=== PATIENT | female | born 1945 | race Caucasian/White ===

== ENCOUNTER 2016-08-21 19:15 | Emergency (ER) | payer OTHER ==
[~2016-08-21] VITALS: Ht 157.5 cm; Wt 70.6 kg
[~2016-08-21 19:15] MED LIST: LACT1CAP6 PO; LEVO112T4 PO; PRLSR20 PO; PRM625 PO; PROM25IN13 PO
[2016-08-21 19:28] VITALS: TEMP 37.2; O2SAT 97; Ht 157.5 cm; Wt 70.6 kg
[2016-08-21] MEDS ORDERED: MEPERIDINE HCL 25 MG/ML CARP IV STA (20:09)
[2016-08-21] MEDS ORDERED: PROMETHAZINE HCL INJ 12.5 MG in SODIUM CHLORIDE 0.9% 50ML 50 ML IV STA (20:09)
[2016-08-21] MEDS ORDERED: SODIUM CHLORIDE 0.9% 500ML 500 ML IV STA (20:13)
[2016-08-21 20:48] LABS: BASO % 0.2 %; BASO ABS # 0.02 K/uL (0-0.2); COMPLETE YES; EOS % 1.2 %; HEMATOCRIT 43.2 % (37-47); IG% 0.1 %; LYMPH % 23.1 %; LYMPH ABS # 1.97 K/uL (1.2-3.4); MEAN CELL VOLUME 85.9 fL (80-100); MEAN PLATELET VOLUME 10.2 fL (7.4-10.4); MONO % 10.3 %; NEUT % 65.1 %; PLATELET COUNT 203 K/uL (130-400); RED BLOOD COUNT 5.03 M/uL (4.2-5.4); WHITE BLOOD COUNT 8.53 K/uL (4.8-10.8)
[2016-08-21 21:09] LABS: BUN/CREATININE RATIO 14.8 (10-20); CALCIUM 8.8 mg/dl (8.5-10.1); CREATININE 0.97 mg/dl (0.60-1.20); POTASSIUM 3.6 mmol/L (3.5-5.1)
[2016-08-21 22:28] VITALS: BP 133/91; PULSE 86; O2SAT 96
--- NOTE | 2016-08-22 01:43 | EMERGENCY ROOM VISIT NOTE ---
History Report prepared by Fab: Dorinda Laura Under the Supervision of: Dr. Jerson Roca M.D. First contact with patient: 19:58 Chief Complaint: HEADACHE Stated Complaint: NAUSEA, MIGRAINE History of Present Illness The patient is a 71 year old female who presents to the Emergency Room with complaints of a worsening headache for the past 2 days. She has a history of migraine headaches and states that this feels like her typical migraine headache. Her pain is located diffusely throughout her head. She rates her pain as an 8/10 in severity. Light exacerbates her pain. She states that she has not had a migraine headache for almost a year. The patient had nausea and vomiting last night due to her pain. Since arriving in the ED today she notes that her left ear is clogged. The patient denies fever, weakness, abdominal pain, and any recent injury or falls. She was brought to the ED by ambulance. Source of History: patient Onset: 2 days ago Position: head Symptom Intensity: 8/10 Timing: worsening Modifying Factors (Worsening): other (light) Associated Symptoms: + nausea, + vomiting, No abdominal pain, No fevers, No weakness Review of Systems See HPI for pertinent positives & negatives. A total of 10 systems reviewed and were otherwise negative. Past Medical & Surgical Medical Problems: (1) Benign hypertension (2) Benign paroxysmal positional vertigo (3) Cystocele (4) Diverticular disease of colon (5) Dyslipidemia (6) Fatty liver (7) Gastroesophageal reflux disease (8) Glaucoma (9) Hypothyroidism (10) Migraine (11) MYALGIA AND MYOSITIS NOS (12) s/p appendectomy (13) s/p cholecystectomy (14) s/p colonoscopy (15) s/p cystocele repair (16) s/p hysterectomy (17) s/p left oophorectomy (18) s/p partial colectomy for diverticulosis (19) Trigeminal neuralgia Family History Cancer Diabetes mellitus Gallbladder disease Heart disease Hypertension Social History Smoking Status: Never Smoker Alcohol Use: none Marital Status: Housing Status: lives with significant other Occupation Status: unemployed, retired Current/Historical Medications Scheduled Estrogens, Conjugated (Premarin), 0.625 MG PO DAILY Lactobacillus (Probiotic), 1 CAP PO DAILY Levothyroxine Sodium (Levothyroxine Sodium), 112 MCG PO DAILY Omeprazole (Prilosec), 20 MG PO DAILY Promethazine Hcl (Phenergan), 25 MG PO Q6 Allergies Coded Allergies: Cefaclor (Verified Allergy, Severe, ANAPHYLACTIC- ALSO CEFTIN,KEFLEX, 08/21) Sulfa Drugs (Verified Allergy, Severe, BACTRIM-HIVES,SOB, 08/21/16) Bromfenac (Verified Allergy, Intermediate, SWELLING; THROAT PAIN, 08/21/16) Paroxetine (Verified Allergy, Intermediate, HIVES, 08/21/16) Carbamazepine (Verified Allergy, Mild, ITCHING, 08/21/16) Acetaminophen (Verified Allergy, Unknown, 08/21/16) Benzalkonium Chloride (Verified Allergy, Unknown, SWELLING, THROAT PAIN, ) Bupropion (Verified Allergy, Unknown, 08/21/16) Cephalosporins (Verified Allergy, Unknown, Unknown, 08/21/16) Ciprofloxacin (Verified Allergy, Unknown, Hives, 08/21/16) Dicyclomine (Verified Allergy, Unknown, 08/21/16) Levofloxacin (Verified Allergy, Unknown, SWELLING, THROAT PAIN, 08/21/16) Lisinopril (Verified Allergy, Unknown, Unknown, 08/21/16) Metronidazole (Verified Allergy, Unknown, 08/21/16) Morphine and Related (Verified Allergy, Unknown, Unknown, 08/21/16) Nitrofurantoin (Verified Allergy, Unknown, Unknown, 08/21/16) Ondansetron (Verified Allergy, Unknown, Unknown, 08/21/16) Penicillins (Verified Allergy, Unknown, ALSO AMPICILLIN,AMOXICILLIN, ) Prednisone (Verified Allergy, Unknown, 08/21/16) Prochlorperazine (Verified Allergy, Unknown, 08/21/16) Propoxyphene (Verified Allergy, Unknown, 08/21/16) Quinolones (Verified Allergy, Unknown, HAS RECEIVED LEVAQUIN IV W/O RXN, ) Sulfa Antibiotics (Verified Allergy, Unknown, HIVES, 08/21/16) Sulfamethoxazole w/Trimethoprim (Verified Allergy, Unknown, HIVES, 08/21/16 ) Tetracycline (Verified Allergy, Unknown, 08/21/16) Ethanol (Verified Adverse Reaction, Intermediate, NAUSEA/VOMITING, 08/21/16 ) Fentanyl (Verified Adverse Reaction, Intermediate, NAUSEA/VOMITING, ) Isosorbide (Verified Adverse Reaction, Mild, HEADACHE, VOMITING, 08/21/16) Atenolol (Verified Adverse Reaction, Unknown, INTOLERANT, 08/21/16) Chlorzoxazone (Verified Adverse Reaction, Unknown, INTOLERANT, 08/21/16) Codeine (Verified Adverse Reaction, Unknown, HEADACHES, 08/21/16) Desipramine (Verified Adverse Reaction, Unknown, INTOLERANT, 08/21/16) Erythromycin (Verified Adverse Reaction, Unknown, INTOLERANT, 08/21/16) Fluoxetine (Verified Adverse Reaction, Unknown, INTOLERANT, 08/21/16) Gabapentin (Verified Adverse Reaction, Unknown, INTOLERANT, 08/21/16) Lincomycin (Verified Adverse Reaction, Unknown, INTOLERANT, 08/21/16) Lorazepam (Verified Adverse Reaction, Unknown, INTOLERANT, 08/21/16) Oxycodone (Verified Adverse Reaction, Unknown, TYLOX-HEADACHES, 08/21/16) Physical Exam Vital Signs Date Time Temp Pulse Resp B/P Pulse Ox O2 Delivery O2 Flow Rate FiO2 08/21/16 22:28 86 18 133/91 96 Room Air 08/21/16 20:30 77 18 145/96 98 Room Air 08/21/16 19:28 37.2 86 18 153/87 97 Room Air 08/21/16 19:28 97 Room Air Physical Exam Constitutional: Vital signs reviewed. Eyes: Pupils are equal round reactive to light. Conjunctiva are noninjected. ENT: Pharynx is clear without erythema or exudate. Mucous membranes are moist. Neck supple without meningeal signs. Respiratory: Clear to auscultation bilaterally. Breath sounds are equal bilaterally. Cardiovascular: Regular rate and rhythm. No rubs or gallops. GI: Soft, nondistended and nontender. Bowel sounds are present. Musculoskeletal: No peripheral edema. Integumentary: No cyanosis. Neurological: The patient is awake and alert. Cranial nerves II-XII are intact. Motor is 5 out of 5 all extremities. Sensation is intact to light touch all extremities. Normal speech. No pronator drift. Psychiatric: Normal affect. Medical Decision & Procedures Laboratory Results 08/21/16 20:31 Red Blood Count 5.03, Mean Corpuscular Volume 85.9, Mean Corpuscular Hemoglobin 30.0, Mean Corpuscular Hemoglobin Concent 35.0, Mean Platelet Volume 10.2, Neutrophils (%) (Auto) 65.1, Lymphocytes (%) (Auto) 23.1, Monocytes (%) (Auto) 10.3, Eosinophils (%) (Auto) 1.2, Basophils (%) (Auto) 0.2, Neutrophils # (Auto ) 5.55, Lymphocytes # (Auto) 1.97, Monocytes # (Auto) 0.88, Eosinophils # (Auto ) 0.10, Basophils # (Auto) 0.02 08/21/16 20:31 Test 08/21/16 20:30 08/21/16 20:31 Influenza Type A Antigen Neg for Influ A (NEG) Influenza Type B Antigen Neg for Influ B (NEG) White Blood Count 8.53 K/uL (4.8-10.8) Red Blood Count 5.03 M/uL (4.2-5.4) Hemoglobin 15.1 g/dL (12.0-16.0) Hematocrit 43.2 % (37-47) Mean Corpuscular Volume 85.9 fL (80-100) Mean Corpuscular Hemoglobin 30.0 pg (25-34) Mean Corpuscular Hemoglobin Concent 35.0 g/dl (32-36) Platelet Count 203 K/uL (130-400) Mean Platelet Volume 10.2 fL (7.4-10.4) Neutrophils (%) (Auto) 65.1 % Lymphocytes (%) (Auto) 23.1 % Monocytes (%) (Auto) 10.3 % Eosinophils (%) (Auto) 1.2 % Basophils (%) (Auto) 0.2 % Neutrophils # (Auto) 5.55 K/uL (1.4-6.5) Lymphocytes # (Auto) 1.97 K/uL (1.2-3.4) Monocytes # (Auto) 0.88 K/uL (0.11-0.59) Eosinophils # (Auto) 0.10 K/uL (0-0.5) Basophils # (Auto) 0.02 K/uL (0-0.2) RDW Standard Deviation 43.6 fL (36.4-46.3) RDW Coefficient of Variation 13.9 % (11.5-14.5) Immature Granulocyte % (Auto) 0.1 % Immature Granulocyte # (Auto) 0.01 K/uL (0.00-0.02) Anion Gap 11.0 mmol/L (3-11) Est Creatinine Clear Calc Drug Dose 47.5 ml/min Estimated GFR () 67.2 Estimated GFR (Non- 57.9 BUN/Creatinine Ratio 14.8 (10-20) Calcium Level 8.8 mg/dl (8.5-10.1) Laboratory results as reviewed by me. Medications Administered Medications (Trade) Dose Ordered Sig/Kaylah Route Start Time Stop Time Status Last Admin Dose Admin Promethazine HCl/ Sodium Chloride (Phenergan Inj/ Nss 50ml) 50.5 ml @ 204 mls/hr NOW STAT IV 08/21/16 20:09 08/21/16 20:24 DC 08/21/16 20:09 204 MLS/HR Meperidine HCl 25 mg 25 mg ONE STAT IV 08/21/16 20:09 08/21/16 20:13 DC 08/21/16 21:40 25 MG Sodium Chloride (Nss 500ml) 500 ml @ 999 mls/hr Q31M STAT IV 08/21/16 20:13 08/21/16 20:43 DC 08/21/16 20:13 999 MLS/HR ED Course 1957: The patient was evaluated in room C5. A complete history and physical exam was performed. 2008: Demerol Inj 25 mg IV, Promethazine HCl 12.5 mg/ Sodium Chloride 50.5 ml @ 204 mls/hr IV. 2013: NSS 500 ml @ 999 mls/hr. 2220: I reassessed the patient at this time. She is feeling better and resting comfortably. I discussed the results and treatment plan with the patient. I answered all pertaining questions that she had. She expressed understanding and verbalized agreement. The patient will be discharged home. Medical Decision This is a 71-year-old female presents with a headache. Differential diagnosis includes migraine headache, tension headache, intracranial mass, intracranial hemorrhage, meningitis. I did perform a limited focused review of portions of the patient's old chart on the electronic medical record. The patient was here in October and June of last year with migraine headaches. She had a normal head CT in June 2015. I did evaluate the patient as noted above. The patient is presenting with a headache which she states is consistent with her prior migraine headaches. It is not the worst headache of her life. She denies any head trauma or fever. She is neurologically intact. IV access was established. I did treat the patient with Demerol and Phenergan IV. She was also given normal saline IV. I did order and review the patient's blood work as noted in the electronic medical record. Her white blood cell count is not elevated. I did reassess the patient. She is feeling better. She is ready for discharge. She was advised follow up with her doctor and given return instructions as outlined below. Impression Primary Impression: Headache Scribe Attestation The scribe's documentation has been prepared under my direct and personally reviewed by me in its entirety. I confirm that the note above accurately reflects all work, treatment, procedures, and medical decision making performed by me. Departure Information Dispostion Home / Self-Care Referrals Krishna Gonzalez, D.O. Forms HOME CARE DOCUMENTATION FORM, IMPORTANT VISIT INFORMATION Patient Instructions ED Headache Migraine, My [facility] Additional Instructions You have been examined and treated today on an emergency basis only. This is not a substitute for, or an effort to provide, complete comprehensive medical care. It is impossible to recognize and treat all injuries or illnesses in a single emergency department visit. It is therefore important that you follow up closely with your physician. Call as soon as possible for an appointment. Return for worsening symptoms or if you develop fever, numbness or weakness on one side of your body, difficulties with your speech or walking, or any other concerning symptoms. Problem Qualifiers Primary Impression: Headache Headache type: unspecified Headache chronicity pattern: acute headache Intractability: not intractable Qualified Codes: R51 - Headache
== END 2016-08-21 22:28 | disposition home or self-care (01) ==
LOC: EDBD 19:15 → C.EDC 19:17
DX: R51 Headache (principal); I10 Essential (primary) hypertension; E78.5 Hyperlipidemia, unspecified; E03.9 Hypothyroidism, unspecified; K21.9 Gastro-esophageal reflux disease without esophagitis; Z79.899 Other long term (current) drug therapy; Z88.0 Allergy status to penicillin; Z88.1 Allergy status to other antibiotic agents; Z88.2 Allergy status to sulfonamides; Z88.5 Allergy status to narcotic agent; Z88.6 Allergy status to analgesic agent; Z88.8 Allergy status to other drugs, medicaments and biological substances; Z82.49 Family history of ischemic heart disease and other diseases of the circulatory system; Z83.3 Family history of diabetes mellitus; Z83.79 Family history of other diseases of the digestive system

== ENCOUNTER 2017-01-26 11:03 | Emergency (ER) | payer OTHER ==
[~2017-01-26] VITALS: Ht 154.9 cm; Wt 68.6 kg
[2017-01-26 11:15] VITALS: TEMP 36.6; Ht 154.9 cm; Wt 68.6 kg
[2017-01-26] MEDS ORDERED: ZINC1TAB PO (12:11)
[2017-01-26] MEDS ORDERED: PANT40TA PO (12:11)
[2017-01-26] MEDS ORDERED: BIMA0.01 OPB (12:11)
[2017-01-26] MEDS ORDERED: MAGN250T3 PO (12:11)
[2017-01-26] MEDS ORDERED: VITA400C3 PO (12:11)
[2017-01-26 12:49] VITALS: O2SAT 97
--- NOTE | 2017-01-26 13:19 | DIAGNOSTIC IMAGING REPORT ---
CHEST ONE VIEW PORTABLE CLINICAL HISTORY: cp dyspnea COMPARISON STUDY: 09/29/2014 FINDINGS: Mild chronic bibasilar atelectatic change. No well-defined acute infiltrate. Mid and upper lungs are clear. IMPRESSION: Chronic change. No acute process. The above report was generated using voice recognition software. It may contain grammatical, syntax or spelling errors. Electronically signed by: Naveed Rodriguez M.D. 01/26/2017 1:18 PM Dictated Date/Time: 01/26/2017 1:17 PM
[2017-01-26 13:41] LABS: HEMATOCRIT 39.3 % (37-47); MEAN CELL VOLUME 85.6 fL (80-100); MEAN CORPUSCULAR HEMOGLOBIN 29.2 pg (25-34); MEAN CORPUSCULAR HGB CONC 34.1 g/dl (32-36); MEAN PLATELET VOLUME 9.9 fL (7.4-10.4); PLATELET COUNT 225 K/uL (130-400); RED BLOOD COUNT 4.59 M/uL (4.2-5.4); WHITE BLOOD COUNT 7.27 K/uL (4.8-10.8)
[2017-01-26 13:56] LABS: PARTIAL THROMBOPLASTIN RATIO 1.1; PROTHROMBIN TIME (PATIENT) 10.6 SECONDS (9.0-12.0)
[2017-01-26 14:09] LABS: BUN/CREATININE RATIO 19.3 (10-20); CALCIUM 9.2 mg/dl (8.5-10.1); CREATININE 0.86 mg/dl (0.60-1.20); POTASSIUM 3.8 mmol/L (3.5-5.1)
[2017-01-26 14:20] LABS: ALB/GLOB RATIO 1.1 (0.9-2); CKMB/CK RATIO 1.6 (0-3.0); THYROID STIMULATING HORMONE 0.811 uIu/ml (0.300-4.500)
[2017-01-26 14:55] VITALS: BP 142/95; PULSE 73; O2SAT 98
--- NOTE | 2017-01-26 17:43 | EMERGENCY ROOM VISIT NOTE ---
History First contact with patient: 12:39 Chief Complaint: CHEST PAIN Stated Complaint: DIZZY, ACHING ALL OVER, PAIN IN UPPER LT CHEST Nursing Triage Summary: Woke up this morning with pain in left chest area with some dizziness. Patient was using stretch bands last nigth for exercise and also has a hx of fibromyalgia. She also has a hx of costochondritis but this pain does not feel like that. History of Present Illness The patient is a 71 year old female who presents to the Emergency Room with complaints of brief episodes of dizziness and left-sided chest pain. The patient reports that when she awoke this morning and set up in bed, she had a spinning sensation that resolved within a few seconds. She was then able to walk to the bathroom and back without any further symptoms. The patient does report a prior history of vertigo. She then went down to the kitchen to feed her cat, and as she bent over, noticed left sided chest pain. The patient reports a history of fibromyalgia, and by a new workout system with resistance bands. She did use that yesterday. She thinks that her pain feels like her typical costochondritis pain. She again reports that this discomfort only lasted a few seconds. She denies any prior history of chest pain or heart disease. She did not notice any shortness of breath with her pain. The patient also relates that she has had hoarseness and loss of voice since earlier this month. She has no point with her PCP on Tuesday to further discuss workup of her laryngitis. She reports that her voice is actually pretty good today, but does notice discomfort with a lot of talking. She denies any runny nose, sinus congestion or sore throat. 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 She usually has her thyroid labs checked every 6 months, but missed her last appointment. She has not noticed any recent fatigue, weight loss or other concerning symptoms. She presents to the emergency department for further evaluation. Review of Systems HEENT: Denies visual disturbance, hearing loss, tinnitus. Denies difficulty swallowing or oral lesions. PULMONARY: Denies cough, shortness of breath, sputum production or hemoptysis. CARDIOVASCULAR: Denies palpitations, dyspnea on exertion, orthopnea or peripheral edema, otherwise see history of present illness. GASTROINTESTINAL: Denies diarrhea, constipation, nausea, vomiting, or abdominal pain. GENITOURINARY: Denies dysuria, frequency, urgency or nocturia. NEUROLOGIC: Denies history of epilepsy, CVA, TIA or chronic headaches. MUSCULOSKELETAL: Denies history of joint tenderness/swelling. SKIN: Denies rashes or lesions. PSYCHIATRIC: Denies history of depression or mental illness. ENDOCRINE: Denies history of diabetes. History of Diamante's thyroiditis. Past Medical/Surgical History Medical Problems: (1) Benign hypertension (2) Benign paroxysmal positional vertigo (3) Cystocele (4) Diverticular disease of colon (5) Dyslipidemia (6) Fatty liver (7) Gastroesophageal reflux disease (8) Glaucoma (9) Hypothyroidism (10) Migraine (11) MYALGIA AND MYOSITIS NOS (12) s/p appendectomy (13) s/p cholecystectomy (14) s/p colonoscopy (15) s/p cystocele repair (16) s/p hysterectomy (17) s/p left oophorectomy (18) s/p partial colectomy for diverticulosis (19) Trigeminal neuralgia Family History Cancer Diabetes mellitus Gallbladder disease Heart disease Hypertension Social History Smoking Status: Never Smoker Alcohol Use: none Marital Status: Housing Status: lives with significant other Occupation Status: unemployed, retired Current/Historical Medications Scheduled Bimatoprost (Lumigan), 1 DROPS OPB HS Estrogens, Conjugated (Premarin), 0.625 MG PO DAILY Lactobacillus (Probiotic), 1 CAP PO DAILY Levothyroxine Sodium (Levothyroxine Sodium), 112 MCG PO DAILY Magnesium (Magnesium 250 mg), 250 MG PO DAILY Omeprazole (Prilosec), 20 MG PO DAILY Pantoprazole (Protonix), 40 MG PO DAILY Vitamin E (Vitamin E 400 Iu), 400 INTER.UNIT PO DAILY Zinc Gluconate (Zinc), 50 MG PO DAILY Physical Exam Vital Signs Date Time Temp Pulse Resp B/P (MAP) Pulse Ox O2 Delivery O2 Flow Rate FiO2 01/26/17 14:55 73 23 142/95 98 Room Air 01/26/17 13:14 67 23 142/91 96 Room Air 01/26/17 12:49 97 Room Air 01/26/17 12:49 97 Room Air 01/26/17 11:29 95 Room Air 01/26/17 11:27 71 01/26/17 11:25 95 Room Air 01/26/17 11:15 36.6 84 18 158/79 96 Room Air Pain Rating (0-10): 3.0 Physical Exam CONSTITUTIONAL: Healthy and well nourished. Alert and oriented X 3 with positive affect. Patient does not appear in any acute distress. HEENT: Normocephalic, atraumatic. Pupils equal, round and reactive. No stair icterus or conjunctival injection/pallor. OROPHARYNX: No posterior pharyngeal erythema or tonsillar hypertrophy. NECK: Full active range of motion without discomfort. No JVD or carotid bruits. No obvious anterior edema or palpable thyroid nodules. RESPIRATORY: Clear to auscultation bilaterally with no wheezing, crackles, rhonchi or stridor. CARDIOVASCULAR: Regular rate and rhythm with no murmurs, rubs or gallops. GASTROINTESTINAL: Bowel sounds present in all quadrants. Abdomen is soft and nontender to palpation. MUSCULOSKELETAL: Examination shows focal discomfort to palpation over the left anterior chest wall, just lateral to the fifth and sixth chondrocostal joints. There is no soft tissue edema, erythema or ecchymosis. INTEGUMENTARY: No rash or other significant dermatologic conditions noted. NEUROLOGIC: Cranial nerves II-XII grossly intact. No focal neurologic deficits noted. Normal finger to nose test. Negative pronator drift. No nystagmus noted. Medical Decision & Procedures ER Provider Diagnostic Interpretation: My interpretation of an ECG shows a normal sinus rhythm of [address] elevation or other conduction abnormalities. My interpretation of a portable chest x-ray does not show any consolidations, pneumothorax or failure pattern. Radiologist report is as follows: CHEST ONE VIEW PORTABLE CLINICAL HISTORY: cp dyspnea COMPARISON STUDY: 09/29/2014 FINDINGS: Mild chronic bibasilar atelectatic change. No well-defined acute infiltrate. Mid and upper lungs are clear. IMPRESSION: Chronic change. No acute process. Laboratory Results 01/26/17 13:27 01/26/17 13:27 Test 01/26/17 13:27 01/26/17 13:40 Red Blood Count 4.59 M/uL (4.2-5.4) Mean Corpuscular Volume 85.6 fL (80-100) Mean Corpuscular Hemoglobin 29.2 pg (25-34) Mean Corpuscular Hemoglobin Concent 34.1 g/dl (32-36) RDW Standard Deviation 44.2 fL (36.4-46.3) RDW Coefficient of Variation 14.1 % (11.5-14.5) Mean Platelet Volume 9.9 fL (7.4-10.4) Prothrombin Time 10.6 SECONDS (9.0-12.0) Prothromb Time International Ratio 1.0 (0.9-1.1) Activated Partial Thromboplast Time 29.1 SECONDS (21.0-31.0) Partial Thromboplastin Ratio 1.1 Anion Gap 5.0 mmol/L (3-11) Est Creatinine Clear Calc Drug Dose 51.6 ml/min Estimated GFR () 77.7 Estimated GFR (Non- 67.0 BUN/Creatinine Ratio 19.3 (10-20) Calcium Level 9.2 mg/dl (8.5-10.1) Total Bilirubin 0.2 mg/dl (0.2-1) Aspartate Amino Transf (AST/SGOT) 22 U/L (15-37) Alanine Aminotransferase (ALT/SGPT) 28 U/L (12-78) Alkaline Phosphatase 103 U/L (45-117) Total Creatine Kinase 103 U/L (26-192) Creatine Kinase MB 1.6 ng/ml (0.5-3.6) Creatine Kinase MB Ratio 1.6 (0-3.0) Total Protein 7.8 gm/dl (6.4-8.2) Albumin 4.0 gm/dl (3.4-5.0) Globulin 3.8 gm/dl (2.5-4.0) Albumin/Globulin Ratio 1.1 (0.9-2) Thyroid Stimulating Hormone (TSH) 0.811 uIu/ml (0.300-4.500) Bedside Troponin I < 0.030 ng/ml (0-0.045) The above labs were reviewed and were normal. ED Course Patient history and physical exam were performed. Nurse's notes were reviewed. Vital signs were reviewed. The patient denied any symptoms on my exam, reporting that her dizziness and chest discomfort were only fleeting, lasting seconds. She seemed to be more concerned about her inability to say in pentecostal, but also voices that she does not think that her intermittent laryngitis is related to her chest pain or dizziness. I did suggest performing workup to rule out possible cardiac etiologies, and the patient was in agreement. IV access was established, and labs were drawn. An ECG and portable chest x-ray were normal. Labs were also reviewed and normal, showing a normal troponin and TSH. She is not anemic. There is no leukocytosis. Renal function is normal. Electrolytes are also normal. The patient was advised that her workup at this point is normal. She was also seen and examined by Dr. Reilly, ED attending physician, who agrees with workup and plan of care. She was instructed to discuss her symptoms with her PCP at her appointment on Tuesday. She is welcome to return to the emergency department for any worsening chest pain, shortness of breath, fever or persistent dizziness. I did explain to the patient that her symptoms are most consistent with vertigo, especially after her symptoms started while getting out of bed this morning. The patient was happy with plan of care, and voiced understanding of all discharge instructions, denying any symptoms at the time of discharge. Medical Decision See previous section. I believe the patient had a very brief episode of vertigo while getting out of bed this morning. Her anterior chest pain is also reproducible to palpation, and the patient reports a history of chronic costochondritis secondary to fibromyalgia. Her workup is not suggestive of acute cardiopulmonary etiology. Because her symptoms only lasted momentarily, I do not feel that the patient requires any further neurologic imaging for her vertigo-like symptoms. I do feel that the patient is safe for outpatient workup. Medication Reconcilliation Current Medication List: was personally reviewed by me Blood Pressure Screening Patient's blood pressure: Normal blood pressure Impression Primary Impression: Anterior chest wall pain Additional Impression: Vertigo Departure Information Dispostion Home / Self-Care Condition FAIR Forms HOME CARE DOCUMENTATION FORM, IMPORTANT VISIT INFORMATION Patient Instructions My [facility] Additional Instructions Follow-up with your family doctor on Tuesday as scheduled. Discuss your evaluation with your family doctor. You may alternate ice and heat to the chest wall as needed. Avoid getting up quickly from bed to avoid vertigo. Return to the emergency department for progressively worsening symptoms. Problem Qualifiers
--- NOTE | 2017-01-28 16:05 | EMERGENCY ROOM VISIT NOTE ---
ED Visit Note First contact with patient: 12:39 HPI: Transient vertigo and self limited cp > 6 hours [employer] PE: AFVSS, well-appearing, NAD NC/AT RRR, no murmurs CTAB Abd soft NT/ND Ext: no edema, erythema Neuro: grossly intact, Cerebellar intact. Plan: Heart score 3, acs not likely. Patient well-appearing and neuro intact. Plan for pcp f/u. I reviewed the patient's past medical history, medications, and visit nursing notes. I discussed the case with the physician assistant banquet manager, examined the patient, and agree with the findings and plan as documented in the physician assistants note. Problem List Medical Problems: (1) Benign hypertension Status: Chronic (2) Benign paroxysmal positional vertigo Status: Chronic (3) Cystocele Status: Chronic (4) Diverticular disease of colon Status: Chronic (5) Dyslipidemia Status: Chronic (6) Fatty liver Status: Chronic (7) Gastroesophageal reflux disease Status: Chronic (8) Glaucoma Status: Chronic (9) Hypothyroidism Status: Chronic (10) Migraine Status: Chronic (11) MYALGIA AND MYOSITIS NOS Status: Chronic (12) s/p appendectomy Status: Resolved (13) s/p cholecystectomy Status: Resolved (14) s/p colonoscopy Status: Resolved (15) s/p cystocele repair Status: Resolved (16) s/p hysterectomy Status: Resolved (17) s/p left oophorectomy Status: Resolved (18) s/p partial colectomy for diverticulosis Status: Resolved (19) Trigeminal neuralgia Status: Chronic Current/Historical Medications Scheduled Bimatoprost (Lumigan), 1 DROPS OPB HS Estrogens, Conjugated (Premarin), 0.625 MG PO DAILY Lactobacillus (Probiotic), 1 CAP PO DAILY Levothyroxine Sodium (Levothyroxine Sodium), 112 MCG PO DAILY Magnesium (Magnesium 250 mg), 250 MG PO DAILY Omeprazole (Prilosec), 20 MG PO DAILY Pantoprazole (Protonix), 40 MG PO DAILY Vitamin E (Vitamin E 400 Iu), 400 INTER.UNIT PO DAILY Zinc Gluconate (Zinc), 50 MG PO DAILY Allergies Coded Allergies: Cefaclor (Verified Allergy, Severe, ANAPHYLACTIC- ALSO CEFTIN,KEFLEX, 01/26) Sulfa Drugs (Verified Allergy, Severe, BACTRIM-HIVES,SOB, 01/26/17) Bromfenac (Verified Allergy, Intermediate, SWELLING; THROAT PAIN, 01/26/17) Paroxetine (Verified Allergy, Intermediate, HIVES, 01/26/17) Carbamazepine (Verified Allergy, Mild, ITCHING, 01/26/17) Acetaminophen (Verified Allergy, Unknown, 01/26/17) Benzalkonium Chloride (Verified Allergy, Unknown, SWELLING, THROAT PAIN, ) Bupropion (Verified Allergy, Unknown, 01/26/17) Cephalosporins (Verified Allergy, Unknown, Unknown, 01/26/17) Ciprofloxacin (Verified Allergy, Unknown, Hives, 01/26/17) Dicyclomine (Verified Allergy, Unknown, 01/26/17) Levofloxacin (Verified Allergy, Unknown, SWELLING, THROAT PAIN, 01/26/17) Lisinopril (Verified Allergy, Unknown, Unknown, 01/26/17) Metronidazole (Verified Allergy, Unknown, 01/26/17) Morphine and Related (Verified Allergy, Unknown, Unknown, 01/26/17) Nitrofurantoin (Verified Allergy, Unknown, Unknown, 01/26/17) Ondansetron (Verified Allergy, Unknown, Unknown, 01/26/17) Penicillins (Verified Allergy, Unknown, ALSO AMPICILLIN,AMOXICILLIN, ) Prednisone (Verified Allergy, Unknown, 01/26/17) Prochlorperazine (Verified Allergy, Unknown, 01/26/17) Propoxyphene (Verified Allergy, Unknown, 01/26/17) Quinolones (Verified Allergy, Unknown, HAS RECEIVED LEVAQUIN IV W/O RXN, ) Sulfa Antibiotics (Verified Allergy, Unknown, HIVES, 01/26/17) Sulfamethoxazole w/Trimethoprim (Verified Allergy, Unknown, HIVES, 01/26/17 ) Tetracycline (Verified Allergy, Unknown, 01/26/17) Ethanol (Verified Adverse Reaction, Intermediate, NAUSEA/VOMITING, 01/26/17 ) Fentanyl (Verified Adverse Reaction, Intermediate, NAUSEA/VOMITING, ) Isosorbide Nitrate (Verified Adverse Reaction, Mild, HEADACHE, VOMITING, ) Atenolol (Verified Adverse Reaction, Unknown, INTOLERANT, 01/26/17) Chlorzoxazone (Verified Adverse Reaction, Unknown, INTOLERANT, 01/26/17) Codeine (Verified Adverse Reaction, Unknown, HEADACHES, 01/26/17) Desipramine (Verified Adverse Reaction, Unknown, INTOLERANT, 01/26/17) Erythromycin (Verified Adverse Reaction, Unknown, INTOLERANT, 01/26/17) Fluoxetine (Verified Adverse Reaction, Unknown, INTOLERANT, 01/26/17) Gabapentin (Verified Adverse Reaction, Unknown, INTOLERANT, 01/26/17) Lincomycin (Verified Adverse Reaction, Unknown, INTOLERANT, 01/26/17) Lorazepam (Verified Adverse Reaction, Unknown, INTOLERANT, 01/26/17) Oxycodone (Verified Adverse Reaction, Unknown, TYLOX-HEADACHES, 01/26/17) Vital Signs Date Time Temp Pulse Resp B/P (MAP) Pulse Ox O2 Delivery O2 Flow Rate FiO2 01/26/17 14:55 73 23 142/95 98 Room Air 01/26/17 13:14 67 23 142/91 96 Room Air 01/26/17 12:49 97 Room Air 01/26/17 12:49 97 Room Air 01/26/17 11:29 95 Room Air 01/26/17 11:27 71 01/26/17 11:25 95 Room Air 01/26/17 11:15 36.6 84 18 158/79 96 Room Air Laboratory Results 01/26/17 13:27 01/26/17 13:27 Test 01/26/17 13:27 01/26/17 13:40 Red Blood Count 4.59 M/uL (4.2-5.4) Mean Corpuscular Volume 85.6 fL (80-100) Mean Corpuscular Hemoglobin 29.2 pg (25-34) Mean Corpuscular Hemoglobin Concent 34.1 g/dl (32-36) RDW Standard Deviation 44.2 fL (36.4-46.3) RDW Coefficient of Variation 14.1 % (11.5-14.5) Mean Platelet Volume 9.9 fL (7.4-10.4) Prothrombin Time 10.6 SECONDS (9.0-12.0) Prothromb Time International Ratio 1.0 (0.9-1.1) Activated Partial Thromboplast Time 29.1 SECONDS (21.0-31.0) Partial Thromboplastin Ratio 1.1 Anion Gap 5.0 mmol/L (3-11) Est Creatinine Clear Calc Drug Dose 51.6 ml/min Estimated GFR () 77.7 Estimated GFR (Non- 67.0 BUN/Creatinine Ratio 19.3 (10-20) Calcium Level 9.2 mg/dl (8.5-10.1) Total Bilirubin 0.2 mg/dl (0.2-1) Aspartate Amino Transf (AST/SGOT) 22 U/L (15-37) Alanine Aminotransferase (ALT/SGPT) 28 U/L (12-78) Alkaline Phosphatase 103 U/L (45-117) Total Creatine Kinase 103 U/L (26-192) Creatine Kinase MB 1.6 ng/ml (0.5-3.6) Creatine Kinase MB Ratio 1.6 (0-3.0) Total Protein 7.8 gm/dl (6.4-8.2) Albumin 4.0 gm/dl (3.4-5.0) Globulin 3.8 gm/dl (2.5-4.0) Albumin/Globulin Ratio 1.1 (0.9-2) Thyroid Stimulating Hormone (TSH) 0.811 uIu/ml (0.300-4.500) Bedside Troponin I < 0.030 ng/ml (0-0.045) Departure Information Impression Primary Impression: Anterior chest wall pain Additional Impression: Vertigo Dispostion Home / Self-Care Condition FAIR Referrals Krishna Gonzalez, D.O. (PCP) Forms HOME CARE DOCUMENTATION FORM, IMPORTANT VISIT INFORMATION Patient Instructions [facility] [employer] [facility] Additional Instructions Follow-up with your family doctor on Tuesday as scheduled. Discuss your evaluation with your family doctor. You may alternate ice and heat to the chest wall as needed. Avoid getting up quickly from bed to avoid vertigo. Return to the emergency department for progressively worsening symptoms. Problem Qualifiers
== END 2017-01-26 15:05 | disposition home or self-care (01) ==
LOC: C.EDB 11:05 → C.EDC 15:05
DX: R07.89 Other chest pain (principal); R42 Dizziness and giddiness; M79.7 Fibromyalgia; E06.3 Autoimmune thyroiditis; M94.0 Chondrocostal junction syndrome [Tietze]; I10 Essential (primary) hypertension; E78.5 Hyperlipidemia, unspecified; K21.9 Gastro-esophageal reflux disease without esophagitis; H40.9 Unspecified glaucoma; E03.9 Hypothyroidism, unspecified; Z90.49 Acquired absence of other specified parts of digestive tract; Z90.710 Acquired absence of both cervix and uterus; Z90.721 Acquired absence of ovaries, unilateral; G50.0 Trigeminal neuralgia; Z80.9 Family history of malignant neoplasm, unspecified; Z83.3 Family history of diabetes mellitus; Z82.49 Family history of ischemic heart disease and other diseases of the circulatory system; Z79.899 Other long term (current) drug therapy

== ENCOUNTER 2017-07-01 14:39 | Emergency (ER) | payer OTHER ==
[~2017-07-01 14:39] MED LIST changes: +BIMA0.01 OPB; +MAGN250T3 PO; +PANT40TA PO; -PROM25IN13 PO; +VITA400C3 PO; +ZINC1TAB PO
== END 2017-07-01 15:12 | disposition home or self-care (01) ==
LOC: C.EDB 14:40
DX: S69.92XA Unspecified injury of left wrist, hand and finger(s), initial encounter (principal); X58.XXXA Exposure to other specified factors, initial encounter